=== PATIENT | female | born 1965 | race Caucasian/White ===

== ENCOUNTER 2017-09-09 13:56 | Inpatient (IN) | payer OTHER ==
[2017-09-09] MEDS: morphine 4 MG/ML VIAL IV (21:02)
[2017-09-09 21:20] LABS: ADD MAN DIFF? NO
[2017-09-09 21:22] LABS: BASOPHILS % 0.4 % (0.0-2.0); EOSINOPHILS # 0.1 10^3/ul (0.0-0.5); EOSINOPHILS % 1.2 % (0.0-7.0); HEMATOCRIT 40.5 % (37.0-47.0); LYMPHOCYTES # 3.2 10^3/ul (0.8-2.9); LYMPHOCYTES % 31.9 % (15.0-51.0); MEAN CORPUSCULAR HEMOGLOBIN 31.1 pg (29.0-33.0); MEAN CORPUSCULAR HGB CONC 34.6 g/dl (32.0-37.0); MONOCYTE # 0.4 10^3/ul (0.3-0.9); MONOCYTES % 4.4 % (0.0-11.0); NEUTROPHIL # 6.2 10^3/ul (1.6-7.5); NEUTROPHILS % 61.5 % (39.0-77.0); PLATELET COUNT 440 10^3/UL (140-415); RED CELL DISTRIBUTION WIDTH 12.8 % (11.5-14.5)
[2017-09-09 21:22] LABS: WHITE BLOOD COUNT 10.1 10^3/ul (4.8-10.8)
[2017-09-09 21:52] LABS: ALANINE AMINOTRANSFERASE 46 IU/L (13-69); ALBUMIN 4.9 g/dl (3.3-4.9); ALBUMIN/GLOBULIN RATIO 1.16; ALKALINE PHOSPHATASE 84 IU/L (42-121); ANION GAP 16 (8-16); ASPARTATE AMINO TRANSFERASE 30 IU/L (15-46); BILIRUBIN,INDIRECT 0.1 mg/dl (0-1.1); BILIRUBIN,TOTAL 0.1 mg/dl (0.2-1.3); BLOOD UREA NITROGEN 13 mg/dl (7-20); CALCIUM 10.4 mg/dl (8.4-10.2); CARBON DIOXIDE 30 mmol/L (21-31); CHLORIDE 98 mmol/L (97-110); CREATININE 0.54 mg/dl (0.44-1.00); GLUCOSE 89 mg/dl (70-220); LIPASE 73 U/L (23-300); POTASSIUM 3.5 mmol/L (3.5-5.1); SODIUM 140 mmol/L (135-144); TOTAL PROTEIN 9.1 g/dl (6.1-8.1)
[2017-09-09] MEDS: IOHEXOL 300MG/ML 150 ML BTL (22:13)
[2017-09-09] MEDS: SOD CHLORIDE 0.9% 100 ML (22:13)
[2017-09-10] MEDS ORDERED: ACETAMINOPHEN 325 MG TAB PO
[2017-09-10] MEDS ORDERED: ONDANSETRON 4 MG INJ IV ×2 (00:30)
[2017-09-10] MEDS ORDERED: NACL 0.9% 3 ML SYG IV (00:30)
[2017-09-10] MEDS: SOD CHLORIDE 0.9% 1,000 ML IV ×2 (03:00→13:32)
[2017-09-10 05:12] LABS: ADD MAN DIFF? NO
[2017-09-10 05:20] LABS: WHITE BLOOD COUNT 9.3 10^3/ul (4.8-10.8)
[2017-09-10 05:20] LABS: BASOPHILS % 0.3 % (0.0-2.0); EOSINOPHILS # 0.1 10^3/ul (0.0-0.5); EOSINOPHILS % 1.4 % (0.0-7.0); HEMATOCRIT 37.2 % (37.0-47.0); HEMOGLOBIN 13.1 g/dl (12.0-16.0); LYMPHOCYTES # 2.3 10^3/ul (0.8-2.9); LYMPHOCYTES % 25.1 % (15.0-51.0); MEAN CORPUSCULAR HEMOGLOBIN 31.5 pg (29.0-33.0); MEAN CORPUSCULAR HGB CONC 35.2 g/dl (32.0-37.0); MEAN CORPUSCULAR VOLUME 89.4 fl (82.0-101.0); MEAN PLATELET VOLUME 10.1 fl (7.4-10.4); MONOCYTE # 0.5 10^3/ul (0.3-0.9); NEUTROPHIL # 6.3 10^3/ul (1.6-7.5); NEUTROPHILS % 67.8 % (39.0-77.0); PLATELET COUNT 371 10^3/UL (140-415); RED BLOOD COUNT 4.16 10^6/ul (4.20-5.40)
[2017-09-10 05:37] LABS: INR 0.95; PROTIME 12.8 Sec (11.9-14.9)
[2017-09-10 05:47] LABS: ALANINE AMINOTRANSFERASE 39 IU/L (13-69); ALBUMIN 4.3 g/dl (3.3-4.9); ALBUMIN/GLOBULIN RATIO 1.22; ALKALINE PHOSPHATASE 71 IU/L (42-121); ANION GAP 12 (8-16); ASPARTATE AMINO TRANSFERASE 28 IU/L (15-46); BILIRUBIN,INDIRECT 0.3 mg/dl (0-1.1); BILIRUBIN,TOTAL 0.3 mg/dl (0.2-1.3); BLOOD UREA NITROGEN 12 mg/dl (7-20); CALCIUM 9.8 mg/dl (8.4-10.2); CARBON DIOXIDE 31 mmol/L (21-31); CHLORIDE 101 mmol/L (97-110); CHOLESTEROL 178 mg/dl (100-200); CREATININE 0.56 mg/dl (0.44-1.00); GLUCOSE 87 mg/dl (70-220); HDL CHOLESTEROL 59 mg/dl (37-92); LDL CHOLESTEROL,CALCULATED 77 mg/dl; SODIUM 140 mmol/L (135-144); TOTAL PROTEIN 7.8 g/dl (6.1-8.1); TRIGLYCERIDES 209 mg/dl (0-149)
[2017-09-10 05:49] LABS: HEMOGLOBIN A1C 4.9 % (0-5.9)
[2017-09-10 06:17] LABS: CARCINOEMBRYONIC ANTIGEN < 0.3 ng/ml (0.0-5.0)
[2017-09-10 07:01] LABS: CANCER ANTIGEN 125 < 5.5 U/ml (0.0-35.0)
[2017-09-10 07:02] LABS: CANCER ANTIGEN 19-9 2.8 U/ml (0.0-37.0)
[2017-09-10 08:04] LABS: ERYTHROCYTE SEDIMENTATION RATE 20 mm/Hr (0-30)
[2017-09-10 08:15] LABS: C-REACTIVE PROTEIN < 0.5 mg/dl (0.0-0.9)
[2017-09-10 11:05] LABS: URIC ACID 4.5 mg/dl (3.1-7.9)
[2017-09-10 11:27] LABS: IMMUNOGLOBULIN A 277 mg/dl (70-400); IMMUNOGLOBULIN G 1179 mg/dl (700-1600); IMMUNOGLOBULIN M 126 mg/dl (40-230)
[2017-09-10] MEDS: ACETAMINOPHEN 325 MG TAB PO (16:34)
[2017-09-10] MEDS: BENAZEPRIL 20 MG TAB PO (20:12)
[2017-09-10] MEDS: HYDROCHLOROTHIAZIDE 12.5 MG CAP PO (20:13)
[2017-09-10] MEDS: ATORVASTATIN 10 MG TAB PO (20:14)
[2017-09-11] MEDS: morphine 2 MG INJ IV (01:38)
[2017-09-11] MEDS: SOD CHLORIDE 0.9% 1,000 ML IV ×2 (03:00→10:00)
[2017-09-11 05:40] LABS: LACTATE DEHYDROGENASE 248 IU/L (313-618)
[2017-09-11 06:46] LABS: PROTEIN, TOTAL 6.9 g/dL (6.1-8.1)
[2017-09-11] MEDS: BENAZEPRIL 20 MG TAB PO ×2 (08:40→20:48)
[2017-09-11] MEDS: HYDROCHLOROTHIAZIDE 12.5 MG CAP PO ×2 (08:40→20:47)
[2017-09-11 13:33] LABS: FOLLICLE STIMULATING HORMONE 38.9 mIU/mL; LUTEINIZING HORMONE 16.1 mIU/mL
[2017-09-11 15:47] LABS: ALBUMIN 3.8 g/dL (3.8-4.8); ALPHA-1-GLOBULINS 0.3 g/dL (0.2-0.3); ALPHA-2-GLOBULINS 0.8 g/dL (0.5-0.9); BETA 2 GLOBULINS 0.4 g/dL (0.2-0.5); BETA GLOBULINS 0.5 g/dL (0.4-0.6); GAMMA GLOBULINS 1.2 g/dL (0.8-1.7)
[2017-09-11 18:02] LABS: CANCER ANTIGEN 15-3 6 U/mL (<32)
[2017-09-11] MEDS: ATORVASTATIN 10 MG TAB PO (20:47)
[2017-09-11] MEDS: LORAZEPAM 0.5 MG TAB PO (20:58)
[2017-09-11] MEDS ORDERED: ZOLPIDEM 5 MG TAB PO (21:00)
[2017-09-12] MEDS: SOD CHLORIDE 0.9% 1,000 ML IV (05:03)
[2017-09-12] MEDS: BENAZEPRIL 20 MG TAB PO (08:48)
[2017-09-12] MEDS: HYDROCHLOROTHIAZIDE 12.5 MG CAP PO (08:48)
== END 2017-09-12 17:00 | disposition home or self-care (01) | DRG 392 ==
LOC: E/R 13:56 → MS3 23:33
DX: R19.00 Intra-abdominal and pelvic swelling, mass and lump, unspecified site (principal); E88.89 Other specified metabolic disorders; I10 Essential (primary) hypertension; E78.5 Hyperlipidemia, unspecified; K80.20 Calculus of gallbladder without cholecystitis without obstruction
CPT/HCPCS: 36415; 71250; 72158; 72197; 74177; 74183; 78306; 80053; 80061; 82105; 82378; 82784; 83001; 83002; 83036; 83615; 83690; 84155; 84165; 84443; 84560; 85025; 85610; 85651; 85730; 86140; 86300; 86301; 86304; 86320; 96374; 99285-25; A9503

== ENCOUNTER 2017-10-27 07:23 | Inpatient (IN) | payer OTHER ==
[~2017-10-27 07:23] MED LIST: SOD CHLORIDE 0.9% 1,000 ML IV
[2017-10-27] MEDS: CEFAZOLIN 2 GM/50 ML (PMX) 50 ML IVPB (08:30)
[2017-10-27] MEDS ORDERED: CEFAZOLIN 1 GM INJ (09:02)
[2017-10-27] MEDS ORDERED: PROPOFOL 20 ML (09:02)
[2017-10-27] MEDS ORDERED: ROCURONIUM 50 MG INJ (09:02)
[2017-10-27] MEDS ORDERED: MIDAZOLAM 1 MG/ML 2 ML INJ (09:03)
[2017-10-27] MEDS ORDERED: ROPIVACAINE 0.2% 20 ML VIAL (09:04)
[2017-10-27] MEDS ORDERED: PHENYLephrine (100 MCG/ML) 5ML SYG ×2 (09:50→10:24)
[2017-10-27] MEDS ORDERED: PIPER-TAZO 3.375 GM IV (PMX) 100 ML (10:27)
[2017-10-27] MEDS ORDERED: morphine SULFATE/PF (10 MG/10 ML) INJ (11:17)
[2017-10-27] MEDS ORDERED: DEXAMETHASONE 4 MG/ML 1 ML INJ ×2 (11:51)
[2017-10-27] MEDS ORDERED: ONDANSETRON 4 MG INJ (11:51)
[2017-10-27] MEDS ORDERED: ACETAMINOPHEN 1000MG/100ML IV 100 ML (11:51)
[2017-10-27] MEDS ORDERED: METOCLOPRAMIDE 10 MG INJ (11:51)
[2017-10-27] MEDS ORDERED: SUGAMMADEX SODIUM 200 MG/2 ML VIAL IV (11:59)
[2017-10-27] MEDS ORDERED: EPHEDrine SULFATE 50 MG/5 ML SYG IV (12:00)
[2017-10-27] MEDS ORDERED: NALBUPHINE HCL (10 MG/1 ML) INJ IV (12:00)
[2017-10-27] MEDS ORDERED: MEPERIDINE 25 MG INJ IV (12:00)
[2017-10-27] MEDS ORDERED: morphine 2 MG INJ IV ×2 (12:00)
[2017-10-27] MEDS ORDERED: NALOXONE (0.4 MG/ML) INJ IV (12:00)
[2017-10-27] MEDS ORDERED: FENTAnyl 50 MCG/ML VIAL IV ×2 (12:00)
[2017-10-27] MEDS ORDERED: hydrALAzine 20 MG INJ IV ×2 (12:00→16:30)
[2017-10-27] MEDS ORDERED: ALBUMIN HUMAN 5% 250 ML IV (12:00)
[2017-10-27] MEDS ORDERED: DIPHENHYDRAMINE 50 MG INJ IV ×2 (12:00)
[2017-10-27] MEDS ORDERED: ONDANSETRON 4 MG INJ IV (12:00)
[2017-10-27] MEDS ORDERED: HYDROmorphONE (0.2 MG/ML) 10ML SYG IV (12:00)
[2017-10-27] MEDS ORDERED: METOCLOPRAMIDE 10 MG INJ IV (12:00)
[2017-10-27] MEDS ORDERED: HYDROmorphONE 0.5 MG/0.5 ML SYG IV (12:00)
[2017-10-27] MEDS ORDERED: LABETALOL HCL 20MG INJ IV (12:00)
[2017-10-27] MEDS ORDERED: LABETALOL HCL 20MG INJ (12:05)
[2017-10-27] MEDS: FENTAnyl 2MCG/ML-ROPIV 0.2% 100 ML BAG EPI (12:45)
[2017-10-27] MEDS: HYDROmorphONE (0.2 MG/ML) 10ML SYG IV ×3 (12:55→15:46)
[2017-10-27] MEDS: ONDANSETRON 4 MG INJ IV (13:41)
[2017-10-27] MEDS: D5-0.2 NACL + KCL 20 MEQ 1,000 ML IV ×2 (17:29→23:00)
[2017-10-28] MEDS: FENTAnyl 2MCG/ML-ROPIV 0.2% 100 ML BAG EPI ×2 (01:35→15:30)
[2017-10-28] MEDS: D5-0.2 NACL + KCL 20 MEQ 1,000 ML IV ×4 (02:55→23:15)
[2017-10-28 05:13] LABS: ADD MAN DIFF? NO
[2017-10-28 05:18] LABS: WHITE BLOOD COUNT 10.3 10^3/ul (4.8-10.8)
[2017-10-28 05:18] LABS: BASOPHILS % 0.2 % (0.0-2.0); EOSINOPHILS % 0.1 % (0.0-7.0); HEMATOCRIT 27.6 % (37.0-47.0); HEMOGLOBIN 9.7 g/dl (12.0-16.0); LYMPHOCYTES # 1.8 10^3/ul (0.8-2.9); LYMPHOCYTES % 17.4 % (15.0-51.0); MEAN CORPUSCULAR HEMOGLOBIN 31.6 pg (29.0-33.0); MEAN CORPUSCULAR HGB CONC 35.1 g/dl (32.0-37.0); MEAN CORPUSCULAR VOLUME 89.9 fl (82.0-101.0); MEAN PLATELET VOLUME 10.3 fl (7.4-10.4); MONOCYTE # 0.8 10^3/ul (0.3-0.9); MONOCYTES % 7.7 % (0.0-11.0); NEUTROPHIL # 7.6 10^3/ul (1.6-7.5); NEUTROPHILS % 74.3 % (39.0-77.0); PLATELET COUNT 276 10^3/UL (140-415); RED BLOOD COUNT 3.07 10^6/ul (4.20-5.40); RED CELL DISTRIBUTION WIDTH 13.1 % (11.5-14.5)
[2017-10-28 05:52] LABS: ALANINE AMINOTRANSFERASE 28 IU/L (13-69); ALBUMIN 2.6 g/dl (3.3-4.9); ALBUMIN/GLOBULIN RATIO 1.08; ALKALINE PHOSPHATASE 47 IU/L (42-121); ANION GAP 9 (8-16); ASPARTATE AMINO TRANSFERASE 20 IU/L (15-46); BILIRUBIN,INDIRECT 0.2 mg/dl (0-1.1); BILIRUBIN,TOTAL 0.2 mg/dl (0.2-1.3); BLOOD UREA NITROGEN 4 mg/dl (7-20); CARBON DIOXIDE 29 mmol/L (21-31); CHLORIDE 105 mmol/L (97-110); CREATININE 0.52 mg/dl (0.44-1.00); GLUCOSE 123 mg/dl (70-220); POTASSIUM 3.7 mmol/L (3.5-5.1); SODIUM 139 mmol/L (135-144)
[2017-10-28] MEDS: HYDROmorphONE 0.5 MG/0.5 ML SYG IV (12:39)
[2017-10-29] MEDS: FENTAnyl 2MCG/ML-ROPIV 0.2% 100 ML BAG EPI ×3 (00:10→18:48)
[2017-10-29 05:43] LABS: ADD MAN DIFF? NO
[2017-10-29 05:45] LABS: BASOPHILS % 0.2 % (0.0-2.0); EOSINOPHILS # 0.1 10^3/ul (0.0-0.5); EOSINOPHILS % 0.6 % (0.0-7.0); HEMOGLOBIN 9.1 g/dl (12.0-16.0); LYMPHOCYTES % 33.1 % (15.0-51.0); MEAN CORPUSCULAR HEMOGLOBIN 31.6 pg (29.0-33.0); MEAN CORPUSCULAR VOLUME 90.3 fl (82.0-101.0); MEAN PLATELET VOLUME 10.2 fl (7.4-10.4); MONOCYTE # 0.6 10^3/ul (0.3-0.9); MONOCYTES % 7.2 % (0.0-11.0); NEUTROPHIL # 5.2 10^3/ul (1.6-7.5); NEUTROPHILS % 58.5 % (39.0-77.0); PLATELET COUNT 253 10^3/UL (140-415); RED BLOOD COUNT 2.88 10^6/ul (4.20-5.40); RED CELL DISTRIBUTION WIDTH 13.1 % (11.5-14.5)
[2017-10-29 05:45] LABS: WHITE BLOOD COUNT 8.9 10^3/ul (4.8-10.8)
[2017-10-29 06:41] LABS: ANION GAP 12 (8-16); BLOOD UREA NITROGEN 3 mg/dl (7-20); CARBON DIOXIDE 26 mmol/L (21-31); CHLORIDE 106 mmol/L (97-110); CREATININE 0.45 mg/dl (0.44-1.00); GLUCOSE 95 mg/dl (70-220); POTASSIUM 3.5 mmol/L (3.5-5.1); SODIUM 140 mmol/L (135-144)
[2017-10-29] MEDS: D5-0.2 NACL + KCL 20 MEQ 1,000 ML IV ×2 (09:14→16:46)
[2017-10-30] MEDS: D5-0.2 NACL + KCL 20 MEQ 1,000 ML IV ×5 (00:14→23:50)
[2017-10-30] MEDS: FENTAnyl 2MCG/ML-ROPIV 0.2% 100 ML BAG EPI ×2 (04:39→15:26)
[2017-10-30 05:36] LABS: ADD MAN DIFF? NO
[2017-10-30 05:46] LABS: BASOPHILS % 0.4 % (0.0-2.0); EOSINOPHILS # 0.1 10^3/ul (0.0-0.5); EOSINOPHILS % 1.7 % (0.0-7.0); HEMATOCRIT 26.4 % (37.0-47.0); HEMOGLOBIN 9.2 g/dl (12.0-16.0); LYMPHOCYTES # 2.7 10^3/ul (0.8-2.9); MEAN CORPUSCULAR HEMOGLOBIN 31.4 pg (29.0-33.0); MEAN CORPUSCULAR HGB CONC 34.8 g/dl (32.0-37.0); MEAN CORPUSCULAR VOLUME 90.1 fl (82.0-101.0); MEAN PLATELET VOLUME 10.1 fl (7.4-10.4); MONOCYTE # 0.4 10^3/ul (0.3-0.9); MONOCYTES % 5.8 % (0.0-11.0); NEUTROPHIL # 3.8 10^3/ul (1.6-7.5); NEUTROPHILS % 53.7 % (39.0-77.0); PLATELET COUNT 262 10^3/UL (140-415); RED BLOOD COUNT 2.93 10^6/ul (4.20-5.40); RED CELL DISTRIBUTION WIDTH 12.7 % (11.5-14.5)
[2017-10-30 07:03] LABS: ANION GAP 11 (8-16); CALCIUM 8.4 mg/dl (8.4-10.2); CARBON DIOXIDE 29 mmol/L (21-31); CHLORIDE 108 mmol/L (97-110); CREATININE 0.48 mg/dl (0.44-1.00); GLUCOSE 96 mg/dl (70-220); POTASSIUM 4.3 mmol/L (3.5-5.1); SODIUM 144 mmol/L (135-144)
[2017-10-30 07:11] LABS: BLOOD UREA NITROGEN < 2 mg/dl (7-20)
[2017-10-30] MEDS: HYDROCODONE/APAP (5/325) TAB PO ×2 (14:08→18:08)
[2017-10-31] MEDS: D5-0.2 NACL + KCL 20 MEQ 1,000 ML IV ×2 (08:23→16:58)
[2017-10-31] MEDS: HYDROCODONE/APAP (5/325) TAB PO ×3 (10:20→20:26)
[2017-10-31] MEDS: HYDROCHLOROTHIAZIDE 12.5 MG CAP PO (20:25)
[2017-10-31] MEDS: BENAZEPRIL 20 MG TAB PO (20:25)
[2017-11-01 05:12] LABS: ADD MAN DIFF? NO
[2017-11-01 05:18] LABS: BASOPHILS % 0.3 % (0.0-2.0); EOSINOPHILS # 0.3 10^3/ul (0.0-0.5); EOSINOPHILS % 4.2 % (0.0-7.0); HEMOGLOBIN 9.9 g/dl (12.0-16.0); LYMPHOCYTES # 1.9 10^3/ul (0.8-2.9); LYMPHOCYTES % 30.6 % (15.0-51.0); MEAN CORPUSCULAR HGB CONC 34.1 g/dl (32.0-37.0); MEAN CORPUSCULAR VOLUME 90.9 fl (82.0-101.0); MONOCYTE # 0.3 10^3/ul (0.3-0.9); MONOCYTES % 5.5 % (0.0-11.0); NEUTROPHIL # 3.6 10^3/ul (1.6-7.5); NEUTROPHILS % 59.1 % (39.0-77.0); PLATELET COUNT 329 10^3/UL (140-415); RED BLOOD COUNT 3.19 10^6/ul (4.20-5.40); RED CELL DISTRIBUTION WIDTH 12.4 % (11.5-14.5)
[2017-11-01 05:18] LABS: WHITE BLOOD COUNT 6.1 10^3/ul (4.8-10.8)
[2017-11-01 06:06] LABS: ANION GAP 13 (8-16); BLOOD UREA NITROGEN 3 mg/dl (7-20); CALCIUM 9.2 mg/dl (8.4-10.2); CARBON DIOXIDE 31 mmol/L (21-31); CHLORIDE 103 mmol/L (97-110); CREATININE 0.48 mg/dl (0.44-1.00); GLUCOSE 87 mg/dl (70-220); POTASSIUM 4.6 mmol/L (3.5-5.1); SODIUM 142 mmol/L (135-144)
[2017-11-01] MEDS: BENAZEPRIL 20 MG TAB PO (08:52)
[2017-11-01] MEDS: HYDROCHLOROTHIAZIDE 12.5 MG CAP PO (08:53)
[2017-11-01] MEDS: HYDROCODONE/APAP (5/325) TAB PO ×2 (12:11→16:45)
== END 2017-11-01 16:57 | disposition home or self-care (01) | DRG 828 ==
LOC: SDS 07:23 → REC 12:42 → MS1 16:35
PROC: 0WBH0ZZ Excision of Retroperitoneum, Open Approach (ICD-10-PCS; principal; 2017-10-27 09:00)
PROC: 0TN70ZZ Release Left Ureter, Open Approach (ICD-10-PCS; 2017-10-27 09:12)
PROC: 03QY0ZZ Repair Upper Artery, Open Approach (ICD-10-PCS; 2017-10-27 09:12)
DX: C48.0 Malignant neoplasm of retroperitoneum (principal); I10 Essential (primary) hypertension; E78.5 Hyperlipidemia, unspecified
CPT/HCPCS: 71045; 74018; 80048; 80053; 84703; 85025; 86850; 86900; 86901; 86920; 87086; 88307; 88341; 88342

== ENCOUNTER 2018-06-11 07:40 | Inpatient (IN) | payer OTHER ==
[2018-06-11] MEDS ORDERED: POLYMYXIN/BACITRACIN 1L IRRIG (10:26)
[2018-06-11] MEDS ORDERED: CEFAZOLIN 1 GM INJ (10:29)
[2018-06-11] MEDS ORDERED: MEPERIDINE 100 MG INJ (10:29)
[2018-06-11] MEDS ORDERED: LIDOCAINE 2% (SDV) 5 ML INJ (10:29)
[2018-06-11] MEDS ORDERED: PROPOFOL 20 ML (10:29)
[2018-06-11] MEDS ORDERED: OXYCODONE/ACETAMINOPHEN (5/325) TAB PO ×2 (10:30)
[2018-06-11] MEDS ORDERED: ONDANSETRON 4 MG INJ (10:30)
[2018-06-11] MEDS ORDERED: EPHEDrine SULFATE 50 MG/5 ML SYG IV (10:30)
[2018-06-11] MEDS ORDERED: hydrALAzine 20 MG INJ IV (10:30)
[2018-06-11] MEDS ORDERED: METOCLOPRAMIDE 10 MG INJ (10:30)
[2018-06-11] MEDS ORDERED: METOCLOPRAMIDE 10 MG INJ IV (10:30)
[2018-06-11] MEDS ORDERED: HYDROmorphONE 1 MG/5 ML IV SYRINGE IV ×2 (10:30)
[2018-06-11] MEDS ORDERED: FENTAnyl 50 MCG/ML VIAL IV ×2 (10:30)
[2018-06-11] MEDS ORDERED: MEPERIDINE 25 MG INJ IV (10:30)
[2018-06-11] MEDS ORDERED: DIPHENHYDRAMINE 50 MG INJ IV (10:30)
[2018-06-11] MEDS ORDERED: LABETALOL HCL 20MG INJ IV (10:30)
[2018-06-11] MEDS ORDERED: ONDANSETRON 4 MG INJ IV ×2 (10:30→14:00)
[2018-06-11] MEDS ORDERED: ATROPINE 1 MG/10 ML SYRINGE (10:55)
[2018-06-11] MEDS ORDERED: NEOSTIGMINE 3 MG/3 ML SYRINGE (12:06)
[2018-06-11] MEDS ORDERED: GLYCOPYRROLATE 0.4 MG INJ (12:06)
[2018-06-11] MEDS ORDERED: ROCURONIUM 50 MG INJ (12:06)
[2018-06-11] MEDS: MIDAZOLAM 1 MG/ML 2 ML INJ IV (13:13)
[2018-06-11] MEDS: FENTAnyl 50 MCG/ML VIAL IV ×2 (13:13→13:27)
[2018-06-11] MEDS: HYDROmorphONE 1 MG/5 ML IV SYRINGE IV (13:34)
[2018-06-11] MEDS: D5W-0.45 NACL + KCL 20 MEQ 1,000 ML IV ×3 (14:00→21:59)
[2018-06-11] MEDS: morphine 2 MG INJ IV ×4 (15:23→20:38)
[2018-06-11] MEDS: morphine 1 MG/ML 30 ML (PCA) IV (21:53)
[2018-06-12] MEDS: D5W-0.45 NACL + KCL 20 MEQ 1,000 ML IV ×3 (00:37→17:38)
[2018-06-12] MEDS: morphine 1 MG/ML 30 ML (PCA) IV ×2 (06:19→15:26)
[2018-06-12] MEDS ORDERED: ACETAMINOPHEN 1000MG/100ML IV 100 ML IVPB (12:00)
[2018-06-12 12:23] LABS: ADD MAN DIFF? NO
[2018-06-12] MEDS: ACETAMINOPHEN 1000MG/100ML IV 100 ML IVPB (12:24)
[2018-06-12 12:25] LABS: BASOPHILS % 0.2 % (0.0-2.0); EOSINOPHILS % 0.2 % (0.0-7.0); HEMATOCRIT 33.9 % (37.0-47.0); HEMOGLOBIN 11.1 g/dl (12.0-16.0); LYMPHOCYTES # 1.8 10^3/ul (0.8-2.9); LYMPHOCYTES % 19.6 % (15.0-51.0); MEAN CORPUSCULAR HEMOGLOBIN 30.7 pg (29.0-33.0); MEAN CORPUSCULAR HGB CONC 32.7 g/dl (32.0-37.0); MEAN CORPUSCULAR VOLUME 93.6 fl (82.0-101.0); MEAN PLATELET VOLUME 9.7 fl (7.4-10.4); MONOCYTE # 0.5 10^3/ul (0.3-0.9); MONOCYTES % 5.4 % (0.0-11.0); NEUTROPHILS % 74.3 % (39.0-77.0); PLATELET COUNT 249 10^3/UL (140-415); RED BLOOD COUNT 3.62 10^6/ul (4.20-5.40); RED CELL DISTRIBUTION WIDTH 13.3 % (11.5-14.5)
[2018-06-12 12:25] LABS: WHITE BLOOD COUNT 9.4 10^3/ul (4.8-10.8)
[2018-06-12] MEDS ORDERED: KETOROLAC 30 MG INJ (12:36)
[2018-06-12] MEDS: KETOROLAC 30 MG INJ IV ×2 (12:39→18:42)
[2018-06-12 12:44] LABS: ANION GAP 3 (5-13); BLOOD UREA NITROGEN 5 mg/dl (7-20); CALCIUM 8.2 mg/dl (8.4-10.2); CARBON DIOXIDE 30 mmol/L (21-31); CHLORIDE 103 mmol/L (97-110); CREATININE 0.45 mg/dl (0.44-1.00); Estimated GFR > 60 mL/min (>60); GLUCOSE 114 mg/dl (70-220); POTASSIUM 4.7 mmol/L (3.5-5.1); SODIUM 136 mmol/L (135-144)
[2018-06-13] MEDS: KETOROLAC 30 MG INJ IV ×4 (01:30→22:00)
[2018-06-13] MEDS: D5W-0.45 NACL + KCL 20 MEQ 1,000 ML IV ×3 (02:59→23:47)
[2018-06-13] MEDS: morphine 1 MG/ML 30 ML (PCA) IV ×2 (04:33→19:52)
[2018-06-13 05:14] LABS: ADD MAN DIFF? NO
[2018-06-13 05:16] LABS: WHITE BLOOD COUNT 7.3 10^3/ul (4.8-10.8)
[2018-06-13 05:16] LABS: BASOPHILS % 0.1 % (0.0-2.0); EOSINOPHILS # 0.1 10^3/ul (0.0-0.5); EOSINOPHILS % 0.8 % (0.0-7.0); HEMOGLOBIN 10.3 g/dl (12.0-16.0); LYMPHOCYTES # 1.6 10^3/ul (0.8-2.9); LYMPHOCYTES % 21.9 % (15.0-51.0); MEAN CORPUSCULAR HEMOGLOBIN 30.5 pg (29.0-33.0); MEAN CORPUSCULAR HGB CONC 32.2 g/dl (32.0-37.0); MEAN CORPUSCULAR VOLUME 94.7 fl (82.0-101.0); MEAN PLATELET VOLUME 9.9 fl (7.4-10.4); MONOCYTE # 0.5 10^3/ul (0.3-0.9); MONOCYTES % 6.6 % (0.0-11.0); NEUTROPHIL # 5.1 10^3/ul (1.6-7.5); NEUTROPHILS % 70.2 % (39.0-77.0); PLATELET COUNT 218 10^3/UL (140-415); RED BLOOD COUNT 3.38 10^6/ul (4.20-5.40); RED CELL DISTRIBUTION WIDTH 13.1 % (11.5-14.5)
[2018-06-13 05:43] LABS: ANION GAP 3 (5-13); BLOOD UREA NITROGEN 3 mg/dl (7-20); CALCIUM 8.6 mg/dl (8.4-10.2); CARBON DIOXIDE 30 mmol/L (21-31); CHLORIDE 104 mmol/L (97-110); CREATININE 0.46 mg/dl (0.44-1.00); Estimated GFR > 60 mL/min (>60); GLUCOSE 114 mg/dl (70-220); POTASSIUM 4.9 mmol/L (3.5-5.1); SODIUM 137 mmol/L (135-144)
[2018-06-13] MEDS: ACETAMINOPHEN 1000MG/100ML IV 100 ML IVPB ×2 (06:07→19:42)
[2018-06-14] MEDS: KETOROLAC 30 MG INJ IV ×3 (01:00→13:03)
[2018-06-14 05:20] LABS: ADD MAN DIFF? NO
[2018-06-14 05:23] LABS: WHITE BLOOD COUNT 6.4 10^3/ul (4.8-10.8)
[2018-06-14 05:23] LABS: BASOPHILS % 0.2 % (0.0-2.0); EOSINOPHILS # 0.2 10^3/ul (0.0-0.5); EOSINOPHILS % 2.8 % (0.0-7.0); HEMATOCRIT 29.4 % (37.0-47.0); HEMOGLOBIN 9.8 g/dl (12.0-16.0); MEAN CORPUSCULAR HEMOGLOBIN 30.8 pg (29.0-33.0); MEAN CORPUSCULAR HGB CONC 33.3 g/dl (32.0-37.0); MEAN CORPUSCULAR VOLUME 92.5 fl (82.0-101.0); MEAN PLATELET VOLUME 9.9 fl (7.4-10.4); MONOCYTE # 0.4 10^3/ul (0.3-0.9); MONOCYTES % 6.7 % (0.0-11.0); NEUTROPHIL # 4.7 10^3/ul (1.6-7.5); NEUTROPHILS % 73.8 % (39.0-77.0); PLATELET COUNT 205 10^3/UL (140-415); RED BLOOD COUNT 3.18 10^6/ul (4.20-5.40); RED CELL DISTRIBUTION WIDTH 12.9 % (11.5-14.5)
[2018-06-14] MEDS: morphine 1 MG/ML 30 ML (PCA) IV (06:01)
[2018-06-14 06:31] LABS: ANION GAP 5 (5-13); BLOOD UREA NITROGEN 2 mg/dl (7-20); CALCIUM 8.8 mg/dl (8.4-10.2); CARBON DIOXIDE 28 mmol/L (21-31); CHLORIDE 105 mmol/L (97-110); CREATININE 0.41 mg/dl (0.44-1.00); Estimated GFR > 60 mL/min (>60); GLUCOSE 110 mg/dl (70-220); POTASSIUM 4.5 mmol/L (3.5-5.1); SODIUM 138 mmol/L (135-144)
[2018-06-14] MEDS: D5W-0.45 NACL + KCL 20 MEQ 1,000 ML IV (08:32)
[2018-06-14] MEDS ORDERED: HYDROCODONE/APAP (5/325) TAB PO (13:30)
[2018-06-14] MEDS: HYDROCODONE/APAP (5/325) TAB PO (13:41)
[2018-06-14] MEDS: MAGNESIUM HYDROXIDE 30ML CUP PO (13:44)
[2018-06-15 05:12] LABS: ADD MAN DIFF? NO
[2018-06-15 05:23] LABS: WHITE BLOOD COUNT 4.6 10^3/ul (4.8-10.8)
[2018-06-15 05:23] LABS: BASOPHILS % 0.4 % (0.0-2.0); EOSINOPHILS # 0.1 10^3/ul (0.0-0.5); EOSINOPHILS % 2.4 % (0.0-7.0); HEMOGLOBIN 9.9 g/dl (12.0-16.0); LYMPHOCYTES # 1.5 10^3/ul (0.8-2.9); LYMPHOCYTES % 33.1 % (15.0-51.0); MEAN CORPUSCULAR HGB CONC 34.1 g/dl (32.0-37.0); MEAN CORPUSCULAR VOLUME 90.9 fl (82.0-101.0); MONOCYTE # 0.4 10^3/ul (0.3-0.9); MONOCYTES % 9.3 % (0.0-11.0); NEUTROPHIL # 2.5 10^3/ul (1.6-7.5); NEUTROPHILS % 54.2 % (39.0-77.0); PLATELET COUNT 237 10^3/UL (140-415); RED BLOOD COUNT 3.19 10^6/ul (4.20-5.40); RED CELL DISTRIBUTION WIDTH 12.6 % (11.5-14.5)
[2018-06-15 05:49] LABS: ANION GAP 6 (5-13); BLOOD UREA NITROGEN 4 mg/dl (7-20); CALCIUM 8.7 mg/dl (8.4-10.2); CARBON DIOXIDE 24 mmol/L (21-31); CHLORIDE 107 mmol/L (97-110); CREATININE 0.43 mg/dl (0.44-1.00); Estimated GFR > 60 mL/min (>60); GLUCOSE 91 mg/dl (70-220); POTASSIUM 4.6 mmol/L (3.5-5.1); SODIUM 137 mmol/L (135-144)
[2018-06-15] MEDS: HYDROCODONE/APAP (5/325) TAB PO ×2 (11:43→18:34)
== END 2018-06-15 18:45 | disposition home or self-care (01) | DRG 331 ==
LOC: SDS 07:40 → MS1 14:15 → SDS 14:00 → REC 15:32 → MS1 15:40
PROC: 0WUF0JZ Supplement Abdominal Wall with Synthetic Substitute, Open Approach (ICD-10-PCS; principal; 2018-06-11 10:28)
PROC: 0DQ80ZZ Repair Small Intestine, Open Approach (ICD-10-PCS; 2018-06-11 10:28)
PROC: 0DBU0ZZ Excision of Omentum, Open Approach (ICD-10-PCS; 2018-06-11 10:28)
PROC: 0DN80ZZ Release Small Intestine, Open Approach (ICD-10-PCS; 2018-06-11 10:28)
PROC: 0JX80ZZ Transfer Abdomen Subcutaneous Tissue and Fascia, Open Approach (ICD-10-PCS; 2018-06-11 10:28)
DX: K43.0 Incisional hernia with obstruction, without gangrene (principal); K66.0 Peritoneal adhesions (postprocedural) (postinfection); I10 Essential (primary) hypertension; E78.5 Hyperlipidemia, unspecified
CPT/HCPCS: 80048; 85025; 88305